=== PATIENT | male | born 2000 | race Asian ===

== ENCOUNTER 2023-04-13 14:52 | Emergency (ER) | payer OTHER ==
[~2023-04-13] VITALS: Ht 165.1 cm; Wt 59.1 kg
[2023-04-13 15:00] VITALS: TEMP 98
[2023-04-13] MEDS ORDERED: SODIUM CHLORIDE 0.9% 1,000 ML IV ONE (15:15)
[2023-04-13] MEDS ORDERED: ONDANSETRON HCL 4 MG/2 ML VIAL IVP ONE (15:15)
[2023-04-13] MEDS ORDERED: PERTUSS(ACELL),DIPH,TET VAC/PF 0.5 ML SYRINGE IM. ONE (15:15)
[2023-04-13] MEDS ORDERED: MORPHINE SULFATE 2 MG/ML SYRINGE IVP ONE (15:15)
[2023-04-13 17:45] VITALS: BP 122/65; PULSE 91; RESP 18
== END 2023-04-13 18:16 | disposition home or self-care (01) ==
LOC: EMS 14:54 → EDBD 14:54 → EMS 18:16
DX: S09.90XA Unspecified injury of head, initial encounter (principal); S60.417A Abrasion of left little finger, initial encounter; S60.415A Abrasion of left ring finger, initial encounter; S60.412A Abrasion of right middle finger, initial encounter; V86.96XA Unspecified occupant of dirt bike or motor/cross bike injured in nontraffic accident, initial encounter; Y93.89 Activity, other specified; Y92.89 Other specified places as the place of occurrence of the external cause
CPT/HCPCS: 99285; 96374; 70450; 96361; 96375; 73130; 90715; 90471; J2270; J2405; J7030